=== PATIENT | female | born 1960 | race Caucasian/White ===

== ENCOUNTER 2017-06-03 06:09 | Day surgery (SDC) | payer BC ==
[2017-06-03] MEDS ORDERED: FENTAnyl 50 MCG/ML VIAL ×2 (09:28→09:29)
[2017-06-03] MEDS ORDERED: MIDAZOLAM 1 MG/ML 2 ML INJ ×4 (09:29)
== END 2017-06-03 11:22 | disposition home or self-care (01) ==
LOC: GIL 06:09
DX: Z12.11 Encounter for screening for malignant neoplasm of colon (principal); D12.2 Benign neoplasm of ascending colon; K55.20 Angiodysplasia of colon without hemorrhage; K29.50 Unspecified chronic gastritis without bleeding; K44.9 Diaphragmatic hernia without obstruction or gangrene; K29.80 Duodenitis without bleeding; K64.9 Unspecified hemorrhoids; B96.81 Helicobacter pylori [H. pylori] as the cause of diseases classified elsewhere; Z80.0 Family history of malignant neoplasm of digestive organs
CPT/HCPCS: 43239; 88305; 88312

== ENCOUNTER 2018-08-05 11:26 | Day surgery (SDC) | payer BC ==
[~2018-08-05 11:26] MED LIST: CIPROFLOXACIN 400MG/D5W 200 ML IVPB
[2018-08-05] MEDS ORDERED: MIDAZOLAM 1 MG/ML 2 ML INJ (14:36)
[2018-08-05] MEDS ORDERED: FENTAnyl 50 MCG/ML VIAL ×3 (14:36→15:34)
[2018-08-05] MEDS ORDERED: PROPOFOL 20 ML (15:23)
[2018-08-05] MEDS ORDERED: LIDOCAINE 2% (SDV) 5 ML INJ (15:23)
[2018-08-05] MEDS ORDERED: ONDANSETRON 4 MG INJ ×2 (15:24→15:50)
[2018-08-05] MEDS: IOHEXOL 300MG/ML 30 ML BTL (15:48)
[2018-08-05] MEDS ORDERED: MEPERIDINE 25 MG INJ (15:50)
[2018-08-05] MEDS ORDERED: DIPHENHYDRAMINE 50 MG INJ IV (16:00)
[2018-08-05] MEDS ORDERED: LABETALOL HCL 20MG INJ IV (16:00)
[2018-08-05] MEDS ORDERED: HYDROmorphONE 1 MG/5 ML IV SYRINGE IV (16:00)
[2018-08-05] MEDS ORDERED: OXYCODONE/ACETAMINOPHEN (5/325) TAB PO ×2 (16:00)
[2018-08-05] MEDS ORDERED: HYDROmorphONE 1 MG/ML SYG (16:10)
[2018-08-05] MEDS: MEPERIDINE 25 MG INJ IV (16:16)
[2018-08-05] MEDS: ONDANSETRON 4 MG INJ IV (16:16)
[2018-08-05] MEDS: FENTAnyl 50 MCG/ML VIAL IV ×4 (16:22→17:15)
[2018-08-05] MEDS: hydrALAzine 20 MG INJ IV (16:31)
[2018-08-05] MEDS: HYDROmorphONE 1 MG/5 ML IV SYRINGE IV ×2 (16:40→16:56)
[2018-08-05 17:28] LABS: ADD MAN DIFF? NO
[2018-08-05 17:29] LABS: WHITE BLOOD COUNT 5.6 10^3/ul (4.8-10.8)
[2018-08-05 17:29] LABS: BASOPHILS % 0.4 % (0.0-2.0); EOSINOPHILS # 0.1 10^3/ul (0.0-0.5); EOSINOPHILS % 1.6 % (0.0-7.0); HEMATOCRIT 36.9 % (37.0-47.0); LYMPHOCYTES % 35.7 % (15.0-51.0); MEAN CORPUSCULAR HEMOGLOBIN 32.5 pg (29.0-33.0); MEAN CORPUSCULAR HGB CONC 35.2 g/dl (32.0-37.0); MEAN CORPUSCULAR VOLUME 92.3 fl (82.0-101.0); MEAN PLATELET VOLUME 10.3 fl (7.4-10.4); MONOCYTE # 0.5 10^3/ul (0.3-0.9); MONOCYTES % 8.1 % (0.0-11.0); PLATELET COUNT 199 10^3/UL (140-415); RED CELL DISTRIBUTION WIDTH 12.4 % (11.5-14.5)
[2018-08-05] MEDS: BELLADONNA ALK/OPIUM SUPP PR (17:39)
[2018-08-05 17:49] LABS: ALANINE AMINOTRANSFERASE 41 IU/L (13-69); ALBUMIN 4.1 g/dl (3.3-4.9); ALBUMIN/GLOBULIN RATIO 1.46; ALKALINE PHOSPHATASE 55 IU/L (42-121); ANION GAP 6 (5-13); ASPARTATE AMINO TRANSFERASE 35 IU/L (15-46); BILIRUBIN,INDIRECT 0.6 mg/dl (0-1.1); BILIRUBIN,TOTAL 0.6 mg/dl (0.2-1.3); BLOOD UREA NITROGEN 9 mg/dl (7-20); CALCIUM 9.8 mg/dl (8.4-10.2); CARBON DIOXIDE 27 mmol/L (21-31); CHLORIDE 108 mmol/L (97-110); CREATININE 0.74 mg/dl (0.44-1.00); Estimated GFR > 60 mL/min (>60); GLUCOSE 108 mg/dl (70-220); SODIUM 141 mmol/L (135-144); TOTAL PROTEIN 6.9 g/dl (6.1-8.1)
== END 2018-08-05 20:47 | disposition home or self-care (01) ==
LOC: SDS 11:26
DX: I10 Essential (primary) hypertension (principal); E78.5 Hyperlipidemia, unspecified; E66.01 Morbid (severe) obesity due to excess calories; D41.4 Neoplasm of uncertain behavior of bladder
CPT/HCPCS: 52332; 71045; 74150; 74420; 80053; 85025

== ENCOUNTER 2018-09-09 06:29 | Day surgery (SDC) | payer BC ==
[2018-09-09] MEDS ORDERED: CIPROFLOXACIN 400MG/D5W 200 ML IVPB (07:00)
[2018-09-09] MEDS: LACTATED RINGER'S 1,000 ML IV (08:00)
[2018-09-09] MEDS ORDERED: MIDAZOLAM 1 MG/ML 2 ML INJ (09:36)
[2018-09-09] MEDS ORDERED: CIPROFLOXACIN 400MG/D5W 200 ML (09:36)
[2018-09-09] MEDS ORDERED: PROPOFOL 20 ML (09:36)
[2018-09-09] MEDS: IOHEXOL 300MG/ML 30 ML BTL (10:11)
[2018-09-09] MEDS: HYDROmorphONE 1 MG/5 ML IV SYRINGE IV ×2 (11:18→11:25)
[2018-09-09] MEDS: ONDANSETRON 4 MG INJ IV (11:19)
[2018-09-09] MEDS: KETOROLAC 30 MG INJ IV (12:38)
== END 2018-09-09 13:00 | disposition home or self-care (01) ==
LOC: SDS 06:29
DX: N28.89 Other specified disorders of kidney and ureter (principal); I10 Essential (primary) hypertension; Z90.710 Acquired absence of both cervix and uterus; Z80.0 Family history of malignant neoplasm of digestive organs; Z80.8 Family history of malignant neoplasm of other organs or systems; Z87.891 Personal history of nicotine dependence
CPT/HCPCS: 52353; 74430; 88104; 88305